=== PATIENT | female | born 1970 | race African-American/Black ===

== ENCOUNTER 2016-05-02 21:17 | Emergency (ER) | payer BC, OTHER ==
[~2016-05-02] VITALS: Ht 162.6 cm; Wt 113.4 kg
[2016-05-02 21:31] VITALS: BP 149/88
[2016-05-02] MEDS ORDERED: DIPHTH,PERTUSS(ACELL),TET TOX 0.5 ML DISP.SYRIN. VAX IM ONE (22:00)
[2016-05-02] MEDS ORDERED: HYDROCODONE/APAP 5/325MG TABLET. PO ONE (22:00)
[2016-05-02] MEDS ORDERED: HYDR-971 PO (22:01)
[2016-05-02] MEDS ORDERED: SULF1TAB24 PO (22:01)
--- NOTE | 2016-05-02 22:02 | PHYS DOC ---
Past Medical History Past Medical History: No Pertinent History Past Surgical History: Hysterectomy Alcohol Use: Occasionally Drug Use: None Adult General Chief Complaint Chief Complaint: FINGER INJURY HPI HPI Patient is a 45 year old female who presents with right middle finger infection after cutting her nails close to her cuticles. Denies any fever. Review of Systems Review of Systems Constitutional: Denies fever or chills [] Eyes: Denies change in visual acuity, redness, or eye pain [] Musculoskeletal: Denies back pain or joint pain [] Integument: Right middle finger infection Neurologic: Denies headache, focal weakness or sensory changes [] Endocrine: Denies polyuria or polydipsia [] Current Medications Current Medications Current Medications Medications (Trade) Dose Ordered Sig/Chuck Start Time Stop Time Status Last Admin Dose Admin Acetaminophen/ Hydrocodone Bitart (Lortab 5/325) 2 tab 1X ONCE 05/02/16 22:00 05/02/16 22:01 Diphtheria/ Tetanus/Acell Pertussis (Boostrix) 0.5 ml ONCE ONCE 05/02/16 22:00 05/02/16 22:01 Allergies Allergies Allergies Coded Allergies Type Severity Reaction Last Updated Verified No Known Drug Allergies 05/02/16 No Physical Exam Physical Exam Constitutional: Well developed, well nourished, no acute distress, non-toxic appearance. [] HENT: Normocephalic, atraumatic, bilateral external ears normal, oropharynx moist, no oral exudates, nose normal. [] Skin: Right middle finger with small amount of swelling around the nail bed consistent with paronychia. The area is yellow and fluctuant warm to touch very tender. Back: No tenderness, no CVA tenderness. [] Extremities: No tenderness, no cyanosis, no clubbing, ROM intact, no edema. [] Neurologic: Alert and oriented X 3, normal motor function, normal sensory function, no focal deficits noted. [] Psychologic: Affect normal, judgement normal, mood normal. [] Current Patient Data Vital Signs Vital Signs Date Time Temp Pulse Resp B/P Pulse Ox O2 Delivery O2 Flow Rate FiO2 05/02/16 21:31 98.1 82 18 98 Room Air 98.1 EKG EKG [] Radiology/Procedures Radiology/Procedures Indication: Right middle finger paronychia Procedure: The patient was positioned appropriately. Local anesthesia was not applicable. 18 gauge needle was used to make an opening on the base of the right middle finger nail bed and mild amount of yellow bloody purulent material was expressed, the area was cleaned and covered with Band-Aid. The patient tolerated the procedure well. Complications: none.[] Course & Med Decision Making Course & Med Decision Making Pertinent Labs and Imaging studies reviewed. (See chart for details) Patient is in the ED with paronychia of the right middle finger which was drained in the ED. Instructed to keep the area clean and dry. Follow-up with PCP as needed. Provided return precautions. Discharged with Bactrim. Tetanus up- to-date. Dragon Disclaimer Dragon Disclaimer This electronic medical record was generated, in whole or in part, using a voice recognition dictation system. Departure Departure Impression: Primary Impression: Paronychia of finger Disposition: HOME, SELF-CARE Condition: STABLE Referrals: NO PCP (PCP) Follow-up with your doctor in 1-2 weeks as needed Patient Instructions: Paronychia, [id number] Additional Instructions: You were seen for paronychia of the right middle finger. Keep the area clean and dry. Soak it in warm Epsom salted and water twice a day. Take the prescribed antibiotics until finished. Follow-up with your doctor in one week, come back to the ED if you have a fever or worsening condition of the finger. Scripts Hydrocodone/Apap 5-325 ([place] 5-325 Tablet)1 Each Tablet1-2 Tab PO Q4-6HRS #20 TAB Prov:JULIETA FARRELL APRN 05/02/16 Sulfamethoxazole/Trimethoprim (Bactrim Ds Tablet)1 Each Tablet1 Tab PO BID #20 TAB Prov:JULIETA FARRELL APRN 05/02/16 Problem Qualifiers Primary Impression: Paronychia of finger Laterality: right Qualified Code: L03.011 - Cellulitis of right finger JULIETA FARRELL APRN May 02, 2016 22:01
== END 2016-05-02 22:08 | disposition home or self-care (01) ==
LOC: ER 21:17
DX: L03.011 Cellulitis of right finger (principal)
CPT/HCPCS: 10060; 90471; 90715; 99283-25

== ENCOUNTER → 2017-01-08 | Outpatient (CLI) | payer OTHER ==
[~2017-01-08] MED LIST: HYDR-971 PO; SULF1TAB24 PO
--- NOTE | 2017-01-08 13:20 | KCIC ---
Bilateral digital screening mammograms: Reason for examination: Routine screening. Comparison is made to previous studies dated 01/02/2016 and 12/10/2013. Interpretation is made with the benefit of CAD. The skin and nipples show no abnormalities. No abnormal lymph nodes are seen. The breast parenchyma is predominantly fatty. (Breast density: Category A.) There are no dominant masses, suspicious calcifications or architectural distortions. Impression: No evidence of malignancy. Recommend routine screening. BI-RADS Category 1: Negative. "Our facility is accredited by the [employer] Mammography [employer]." This patient's information has been entered into a reminder system for the patient to be notified with the results of her examination and a target date for the next mammogram. Electronically signed by: Serena Koch MD (01/08/2017 1:17 PM) [id number]
== END ==
LOC: KCIC MAMMO 08:20
PROVIDERS: ATTEND Obstetrics & Gynecology
DX: Z12.31 Encounter for screening mammogram for malignant neoplasm of breast (principal)
CPT/HCPCS: G0202; 77067

== ENCOUNTER → 2019-05-11 | Outpatient (CLI) | payer OTHER ==
[~2019-05-11] MED LIST changes: +HYDR-3164 PO; -HYDR-971 PO
--- NOTE | 2019-05-11 19:54 | KCIC ---
Bilateral digital screening mammograms: Reason for examination: Routine screening. Comparison is made to previous studies dated 01/08/2017 and 01/02/2016. Interpretation was made with the benefit of CAD. The skin and nipples show no abnormalities. No abnormal axillary lymph nodes are seen. The breast parenchyma shows scattered fibroglandular density. (Breast density: Category B.) There are no dominant masses, suspicious calcifications or architectural distortions. Impression: No evidence of malignancy. Recommend routine screening. BI-RADS Category 1: Negative. "Our facility is accredited by the [employer] Mammography [employer]." This patient's information has been entered into a reminder system for the patient to be notified with the results of her examination and a target date for the next mammogram. Electronically signed by: Serena Koch MD (05/11/2019 7:51 PM) [email or web address]
== END ==
LOC: KCIC MAMMO 15:43
PROVIDERS: ATTEND Family Medicine
DX: Z12.31 Encounter for screening mammogram for malignant neoplasm of breast (principal)
CPT/HCPCS: 77067

== ENCOUNTER → 2020-06-28 | Outpatient (CLI) | payer OTHER ==
--- NOTE | 2020-06-28 16:23 | KCIC ---
Bilateral digital screening mammograms: Reason for examination: Routine screening. Comparison is made to previous studies dated back to 01/02/2016. Interpretation is made with the benefit of CAD. The skin and nipples show no abnormalities. No abnormal lymph nodes are seen. The breast parenchyma i s predominantly fatty. (Breast density: Category A.) There are no dominant masses, suspicious calcifi cations or architectural distortions. Impression: No evidence of malignancy. Recommend routine screening. BI-RADS Category 1: Negative. "Our facility is accredited by the [employer] Mammography [employer]." This patient's information has been entered into a reminder system for the patient to be notified wit h the results of her examination and a target date for the next mammogram. Electronically signed by: Serena Koch MD (06/28/2020 4:21 PM) [email or web address]
== END ==
LOC: KCIC MAMMO 15:18
PROVIDERS: ATTEND Family Medicine
DX: Z12.31 Encounter for screening mammogram for malignant neoplasm of breast (principal)
CPT/HCPCS: 77067